=== PATIENT | female | born 1965 | race Caucasian/White ===

== ENCOUNTER 2017-08-23 09:04 | Emergency (ER) | payer OTHER ==
[~2017-08-23] VITALS: Ht 152.4 cm; Wt 78.9 kg
[2017-08-23 09:08] VITALS: Ht 152.4 cm; Wt 78.9 kg
[2017-08-23] MEDS ORDERED: TETRACAINE 0.5% 4 ML OPH RIGHT EYE ONE (10:30)
[2017-08-23] MEDS ORDERED: FLUORESCEIN STRIP RIGHT EYE ONE (10:30)
--- NOTE | 2017-08-23 13:07 | RADRPT ---
PROCEDURE: US orbits. CLINICAL INDICATION: Right orbital pain and redness. TECHNIQUE: High-resolution sonography of the orbits was performed in the axial and sagittal planes . COMPARISON: None. FINDINGS: There is a linear echogenic band in the right posterior chamber with adjacent increased echogenicity in the vitreous. The left globe is normal with no region of abnormal echogenicity or evidence of retinal detachment. IMPRESSION: 1. Linear echogenic band in the right posterior chamber, suspicious for retinal detachment. Adjacen t increased echogenicity in the vitreous is consistent with hemorrhage. 2. Left globe is normal. RPTAT: QQ .Juan Guzman MD, MD Date Time Electronically viewed and signed by .Juan Guzman MD, MD on 08/23/2017 13:06 .R/
[2017-08-23] MEDS ORDERED: ACETAMINOPHEN 325 MG TAB PO ONE (16:00)
[2017-08-23 16:10] VITALS: BP 127/81; PULSE 81; RESP 18; TEMP 97.7
--- NOTE | 2017-08-23 16:21 | ERA ---
ER Documentation Chief Complaint Date/Time DATE: 08/23/17 TIME: 16:17 Chief Complaint right eye pain HPI 51-year-old female patient with autoimmune hepatitis, hypothyroidism presents to the ED complaining of an sudden onset of right eye pain with foreign body sensation that started at 6 AM this morning. Patient reports that she tried to wash it out herself however still feels the burning sensation. Denies any itchiness. Reports that she has blurred vision of the right eye. Denies seeing any floaters, vision loss. Denies any headache, weakness, numbness or tingling, trauma to the eye, nausea, vomiting. Reports that she takes prednisone, Imuran and Synthroid. Denies wearing contacts or glasses. Denies any ocular injury. ROS All systems reviewed and are negative except as per history of present illness. Allergies Allergies: Coded Allergies: No Known Drug Allergies (Verified Allergy, Unknown, 08/23/17) PMhx/Soc Medical and Surgical Hx: pt denies Surgical Hx History of Surgery: No Anesthesia Reaction: No Hx Neurological Disorder: No Hx Respiratory Disorders: No Hx Cardiac Disorders: No Hx Psychiatric Problems: No Hx Miscellaneous Medical Probl: Yes (thyroid, auto-immune hepatitis) Hx Alcohol Use: No Hx Substance Use: No Hx Tobacco Use: No Smoking Status: Never smoker Physical Exam Vitals Vital Signs Date Time Temp Pulse Resp B/P Pulse Ox O2 Delivery O2 Flow Rate FiO2 08/23/17 16:10 97.7 81 18 127/81 98 Room Air 08/23/17 09:08 98.1 81 18 137/81 99 Physical Exam Const: [id number]-sqsufromy, well-nourished. In no acute distress. Head: Atraumatic, normocephalic Eyes: Left normal conjunctiva without injection. Injected right conjunctiva. No purulent discharge. PERRLA. EOMI. Lacrimation noted of right eye. ENT: Normal external ear. Ear canal without erythema. Tympanic membrane pearly campbell without effusion or bulging. Nasal canal clear with normal turbinates. Moist oropharynx without tonsillar exudates. Non-erythematous pharynx. Uvula midline. No drooling. No trismus. Neck: No cervical midline tenderness. Full range of motion. No meningismus. No cervical lymphadenopathy. No JVD. Resp: Clear to auscultation bilaterally. No wheezing, rhonchi, rales, or crackles. No accessory muscle use. No retractions. Cardio: Regular rate and rhythm. No murmurs, rubs or gallops. Skin: Normal skin turgor. No petechiae or rashes Ext: No cyanosis, or edema. Distal pulses intact bilaterally. Neur: Awake and alert. Normal gait. Normal coordination. Cranial Nerves II- VII intact. Normal finger to nose. Muscle strength 5/5. Sensation intact. Psych: Normal Mood and Affect Results 24 hrs Current Medications Medications (Trade) Dose Ordered Sig/Mervin Route PRN Reason Start Time Stop Time Status Last Admin Dose Admin Tetracaine HCl (Tetracaine 0.5% Steri-Unit Nguyen) 1 drop ONCE ONCE RIGHT EYE 08/23/17 10:30 08/23/17 10:33 DC Fluorescein Sodium (Tgkvn-A-Hnhud) 1 strip ONCE ONCE RIGHT EYE 08/23/17 10:30 08/23/17 15:47 DC Acetaminophen (Tylenol Tab) 650 mg ONCE ONCE PO 08/23/17 16:00 08/23/17 16:01 DC 08/23/17 15:46 Procedures/MDM 51-year-old female patient with a past medical history of autoimmune hepatitis, hypothyroidism presents the ED complaining of right eye pain and foreign body sensation. Patient is afebrile and nontoxic-appearing. Eye Exam Visual Acuity: Right 20/40 Left 20/50 Bilateral 20/50 Visual Jackson: Intact in all four quadrants bilaterally 500 mL normal saline was used to irrigate patient's right eye using a Thiago's lens. Patient stated that she did not feel better. At this time patient reported a pins and needles sensation of her right eye. An ultrasound of the soft tissue of the eyes was ordered to further evaluate patient. PROCEDURE: US orbits. CLINICAL INDICATION: Right orbital pain and redness. TECHNIQUE: High-resolution sonography of the orbits was performed in the axial and sagittal planes. COMPARISON: None. FINDINGS: There is a linear echogenic band in the right posterior chamber with adjacent increased echogenicity in the vitreous. The left globe is normal with no region of abnormal echogenicity or evidence of retinal detachment. IMPRESSION: 1. Linear echogenic band in the right posterior chamber, suspicious for retinal detachment. Adjacent increased echogenicity in the vitreous is consistent with hemorrhage. 2. Left globe is normal. Patient has a linear echogenic band in the right posterior chamber suspicious for retinal detachment. There is also adjacent increased echogenicity in the vitreous is consistent with a hemorrhage. This was discussed with my supervising physician, Dr. Wolfe who stated that patient needed to be transferred to an acute care facility with an practice or student teacher for further care and treatment of possible retinal detachment. I spoke with Dr. Lr, practice or student teacher from [facility] who will be accepting the transfer at this time at their ER facility. She will further evaluate patient. Patient is now under the care of Dr. Cisneros. She is hemodynamically stable. Patient was also treated here in the ED with Tylenol for her pain. Departure Diagnosis: Primary Impression: Retinal detachment Qualified Code: H33.21 - Right retinal detachment Condition: Fair MISA VELAZCO PA-C Aug 23, 2017 16:21 MISA VELAZCO PA-C Aug 23, 2017 16:21
== END 2017-08-23 16:59 | disposition short-term general hospital (02) ==
LOC: FTE 09:04
DX: H33.21 Serous retinal detachment, right eye (principal)
CPT/HCPCS: 76536; Z7502; Z7610